=== PATIENT | male | born 1965 | race Caucasian/White ===

== ENCOUNTER 2020-10-24 19:49 | Emergency (ER) | payer MEDICAID ==
[2020-10-24] MEDS ORDERED: LIDOCAINE HCL-MPF 1% 2ML VIAL ONE (20:14)
[2020-10-24] MEDS ORDERED: LIDOCAINE HCL 2% 20ML ONE (20:21)
[2020-10-24] MEDS ORDERED: CEPHALEXIN 500 MG CAPSULE ONE (20:44)
== END 2020-10-24 21:29 | disposition home or self-care (01) ==
LOC: EDH 19:49
DX: S51.812A Laceration without foreign body of left forearm, initial encounter (principal); Z88.0 Allergy status to penicillin; Z88.6 Allergy status to analgesic agent; W01.0XXA Fall on same level from slipping, tripping and stumbling without subsequent striking against object, initial encounter; Y93.89 Activity, other specified; Y92.098 Other place in other non-institutional residence as the place of occurrence of the external cause; Y99.8 Other external cause status
CPT/HCPCS: 12002; 99283; J3490 ×2